=== PATIENT | female | born 2000 | race African-American/Black ===

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

== ENCOUNTER 2022-03-10 20:55 | Emergency (ER) | payer MEDICAID ==
[~2022-03-10] VITALS: Ht 152.4 cm; Wt 50.0 kg
[2022-03-10 21:26] VITALS: BP 117/73
[2022-03-10] MEDS ORDERED: ACETAMINOPHEN 325MG TABLET PO STA (22:13)
== END 2022-03-10 23:18 | disposition left against medical advice (07) ==
LOC: ER 20:55
DX: Z53.21 Procedure and treatment not carried out due to patient leaving prior to being seen by health care provider (principal); R30.0 Dysuria

== ENCOUNTER 2022-07-21 20:56 | Emergency (ER) | payer MEDICAID ==
[~2022-07-21] VITALS: Ht 152.4 cm; Wt 50.0 kg
[2022-07-21 21:42] VITALS: BP 130/93
[2022-07-22 00:23] LABS: CLARITY URINE CLOUDY (CLEAR); COLOR URINE YELLOW (YELLOW); KETONES URINE TRACE (NEGATIVE); LEUKOCYTE ESTERASE URINE 3+ (NEGATIVE); NITRITE URINE NEGATIVE (NEGATIVE); OCCULT BLOOD URINE NEGATIVE (NEGATIVE); PROTEIN URINE TRACE (NEGATIVE); SPECIFIC GRAVITY URINE 1.025 (1.005-1.030)
[2022-07-22] MEDS ORDERED: CLIN-194 MT (02:10)
== END 2022-07-22 02:30 | disposition home or self-care (01) ==
LOC: ER 20:56
DX: R10.2 Pelvic and perineal pain (principal); J45.909 Unspecified asthma, uncomplicated; Z88.6 Allergy status to analgesic agent
CPT/HCPCS: 81003; 87210; 99284

== ENCOUNTER 2022-10-23 08:08 | Emergency (ER) | payer MEDICAID ==
[~2022-10-23] VITALS: Ht 152.4 cm; Wt 49.0 kg
[~2022-10-23 08:08] MED LIST: CLIN-194 MT
[2022-10-23] MEDS ORDERED: AMOXICILLIN 500 MG CAPSULE PO ONE (08:45)
[2022-10-23] MEDS ORDERED: IBUPROFEN 600MG TABLET PO ONE (08:45)
[2022-10-23 09:08] LABS: CLARITY URINE CLOUDY (CLEAR); COLOR URINE DARK YELLOW (YELLOW); KETONES URINE 2+ (NEGATIVE); LEUKOCYTE ESTERASE URINE TRACE (NEGATIVE); NITRITE URINE NEGATIVE (NEGATIVE); OCCULT BLOOD URINE 2+ (NEGATIVE); PROTEIN URINE 1+ (NEGATIVE); SPECIFIC GRAVITY URINE 1.033 (1.005-1.030)
[2022-10-23 09:09] VITALS: BP 112/80
[2022-10-23] MEDS ORDERED: AMOX-494 MT ×3 (09:20→09:42)
== END 2022-10-23 09:57 | disposition home or self-care (01) ==
LOC: ER 08:08
DX: J03.90 Acute tonsillitis, unspecified (principal); E86.0 Dehydration; R31.9 Hematuria, unspecified; M54.50 Low back pain, unspecified; J45.909 Unspecified asthma, uncomplicated
CPT/HCPCS: 81003; 81025; 99283

== ENCOUNTER 2023-12-24 17:24 | Emergency (ER) | payer MEDICAID ==
[~2023-12-24] VITALS: Ht 152.4 cm; Wt 49.0 kg
[~2023-12-24 17:24] MED LIST changes: +AMOX-494 MT
[2023-12-24 17:28] VITALS: BP 127/76; PULSE 83; RESP 16; TEMP 98.8; O2SAT 100
[2023-12-24 18:11] LABS: CLARITY URINE TURBID (CLEAR); COLOR URINE YELLOW (YELLOW); GLUCOSE URINE NEGATIVE (NEGATIVE); KETONES URINE TRACE (NEGATIVE); LEUKOCYTE ESTERASE URINE TRACE (NEGATIVE); NITRITE URINE NEGATIVE (NEGATIVE); OCCULT BLOOD URINE NEGATIVE (NEGATIVE); PROTEIN URINE TRACE (NEGATIVE); SPECIFIC GRAVITY URINE 1.031 (1.005-1.030)
[2023-12-24 18:35] LABS: BACTERIA URINE 3+; RBC URINE 0-2 /hpf (0-2); SQUAMOUS EPITHELIAL CELL URINE 2+ /lpf (RARE/1+); WBC URINE 0-2 /hpf (0-2)
[2023-12-24] MEDS ORDERED: HYDR453.3 TP (18:46)
[2023-12-26 14:10] LABS: CHLAMYDIA TRACHOMATIS NAA Negative (Negative); NEISSERIA GONORRHOEAE NAA Negative (Negative)
== END 2023-12-24 19:58 | disposition home or self-care (01) ==
LOC: ER 17:24
DX: L29.9 Pruritus, unspecified (principal); J45.909 Unspecified asthma, uncomplicated
CPT/HCPCS: 87491; 87591; 81003; 81025; 87210; 99283; Z7610